=== PATIENT | female | born 1955 | race Caucasian/White ===

== ENCOUNTER 2019-01-11 08:31 | Observation (INO) | payer BC, OTHER ==
[2019-01-07 13:00] VITALS: BMI 28.5
--- NOTE | 2019-01-09 11:50 | PREOPHP ---
DATE OF ADMISSION: 01/11/2019 The patient to have surgery with Dr. Marielle Wilkinson 01/11/2019. REASON FOR CONSULTATION: Consultation requested by Dr. Marielle Wilkinson for medical evaluation and sebastian arabelae of a 63-year-old woman about to undergo surgery. Thank you, Dr. Wilkinson, for allowing us to participate in the care of this patient. HISTORY OF PRESENT ILLNESS: Yola Pack a 63-year-old woman, issues with her right hip is currently b eing admitted for correction of the above. In terms of her prior medical and surgical history patient has not had any medical hospitalizations, save for severe depression and one hospitalization for pne umonia several years back. Other than that, she has been relatively healthy from a medical standpoin t. From a surgical standpoint she has had 2 C-sections, had right and left hip surgery x2, one being open and the other one arthroscopic, had arthroscopic surgery on her right and left shoulder. Right x2, left x1 and one open one on her left shoulder. She has also had a total abdominal hysterectomy, had arthroscopic surgery done on her left knee. Other than that, however, she has been relatively h ealthy. She has not broken any bones. MEDICATIONS: She is currently taking the following medications: 1. Xanax 1 mg b.i.d. 2. Valium 5 mg 2 per day. 3. Cogentin 2 mg t.i.d. 4. Navane 5 mg daily. 5. Vitamins and minerals. 6. Also taking Metformin 850 mg b.i.d. SOCIAL HISTORY: The patient is , has 2 daughters and 2 grandchildren, 1 daughter has had [address] cancer, is a survivor. She does not smoke or drink alcohol, does drink coffee, is employed and ricks s usually no difficulty sleeping at night. FAMILY HISTORY: Father in late 90s of old age, mother in her 80s possibly also of old age and o ther issues associated with it including cancer, four brothers in good health. There is a family his tory of cancer. She knows of no diabetes, heart, hypertension, or stroke in the family. REVIEW OF SYSTEMS: HEENT: Unremarkable. CARDIORESPIRATORY: Denies any chest pain or shortness of breath. GASTROINTESTINAL: No melena or hematemesis. Does have signs and symptoms of irritable bowel syndrom e. GENITOURINARY: No urgency or frequency. GYNECOLOGIC: Post hysterectomy. MUSCULOSKELETAL: Positive for right hip pain. NEUROPSYCHIATRIC: Positive for depression. GENERAL HEALTH: As above. PHYSICAL EXAMINATION: VITAL SIGNS: The patient's blood pressure was 110/80. Respirations were 18, temperature 98.5, pulse was 69, height was 5 feet 1 inch, weight was 151 pounds. GENERAL: The patient was noted to be a well-developed, well-nourished female, alert and cooperative, in no apparent acute distress. Oriented to time, place, and person. HEAD, EARS, EYES, NOSE AND THROAT: Head was atraumatic. Eyes: Pupils were equal, reactive to light and accommodation. Fundi were benign. Tympanic membranes were unremarkable. Nose was negative. M outh was unremarkable. Fair oral hygiene was present. NECK: Supple without any rigidity. Trachea was midline. Thyroid was within normal limits. Neck ve ins were flat. Carotid pulses were equal. No bruits were heard. BACK: Unremarkable. CHEST: Symmetrical. BREASTS AND AXILLARY: Did not reveal any obvious masses. LUNGS: Clear to percussion and auscultation. HEART: PMI was 5th intercostal space at the midclavicular line. A regular sinus rhythm was noted. No significant murmurs, rubs, or gallops being elicited. ABDOMEN: Soft, good bowel sounds were noted. No significant organomegaly, masses, tenderness. Scar from prior surgery was noted. GENITALIA AND PELVIRECTAL: Up to date per PCP. EXTREMITIES: Did not reveal any clubbing, edema or cyanosis. Peripheral pulses were physiologic. S cars from prior surgeries were noted. Skin was moist and warm without any eruptions. No gross lymph adenopathy was noted. NEUROLOGIC: Grossly intact. IMPRESSION: 1. Torn tendon muscle right hip with secondary right hip pain. 2. Prediabetes type 2. 3. Chronic pain syndrome. 4. Depression. 5. Stable health. DISCUSSION: Review of laboratory and other data revealed the following: The patient's chemistry castillo el including electrolytes, glucose, BUN, creatinine, calcium, uric acid, proteins, liver function melvina ts, magnesium, serum iron, hemoglobin A1c, CBC, UA, PT and PTT were all normal. Her hemoglobin A1c w as 5.8, which is in the prediabetes range and depicts excellent control of diabetes. The patient's E KG was borderline. A sinus bradycardia was noted and nonspecific ST-T wave changes being noted as we ll. No acute changes being noted, and chest x-ray did not reveal any acute infiltrates, nor were the re any acute cardiopulmonary changes being noted. DISCUSSION: Dr. Wilkinson, I see no contraindication in this patient undergoing current proposed surge ry under desired form of anesthesia. I feel she is a suitable candidate at this particular point in time. Should any medical problems arise during her stay at [facility], will be more than ricks ppy to follow her up at the appropriate times. Thank you again, Dr. Wilkinson, for allowing us to participate in the care of this patient. Dictated By: SHERLY LOONEY MD SS/NTS Conf#: [id number] DID#: [id number] CC: MARIELLE WILKINSON MD;*EndCC*
[~2019-01-11] VITALS: Ht 157.5 cm; Wt 68.0 kg
[2019-01-11] VITALS (27 sets, daily range): BP systolic 91–131; BP diastolic 53–79; PULSE 50–86; RESP 10–28; Ht 157.5 cm; Wt 68.0 kg
--- NOTE | 2019-01-11 05:27 | HPN ---
Date/Time of Note Date/Time of Note DATE: 01/11/19 TIME: 05:27 Interval H&P Admission Note Pt. seen H&P reviewed: No system changes MARIELLE FINK MD January 11, 2019 05:27
--- NOTE | 2019-01-11 05:29 | OPR ---
Date/Time of Note Date/Time of Note DATE: 01/11/19 TIME: 05:27 Operative Report Procedure Date: January 11, 2019 Preoperative Diagnosis Right hip chronic abductor tendon tear Postoperative Diagnosis 1. Right hip chronic gluteus medius tear 2. Right hip chronic trochanteric bursitis, severe Operation/Procedure Performed 1. Right open gluteus medius repair 2. Right open trochanteric bursectomy 3. Right hip injection of PRP solution Surgeon see signature line Sales Market Leader Denilson Raza PA-C Anesthesia Type: general Estimated Blood Loss: 50 - 100 ml's Transfusion none Specimen None Grafts/Implants See body of op note Complications none Pt Condition Post Procedure: stable Disposition: PACU Procedure Description REGISTERED NURSE SUPERVISOR SURGEON: Denilson Raza PA-C was asked to be present at my request as a result of the complexity associated with this procedure including positioning of the extremity, as well as exposure of the neurovascular structures and protection of those structures. In my opinion, the assistance offered by a ophthalmology surgical technician is insufficient and he should be compensated for his time. PROCEDURE IN DETAIL: Following the administration of general endotracheal anesthesia supplemented with a local anesthetic, the right forearm was then sterilely prepped and 60 cc of blood were aspirated from the forearm. The blood was then passed off to the patient intake representative from the company for preparation of the PRP solution. The patient was then placed in the left lateral decubitus position after carefully turning her. An axillary fold was placed. Sterile prep and drape was then undertaken. A lateral incision was then made over the trochanteric prominence of the right hip directly over the prior incision. The incision was carried through the subcutaneous tissues exposing the iliotibial band, which appeared to be chronically torn and retracted. The IT band was then i mobilized up to the area of the tensor femoris and up to the area proximally at the origin. A severe amount of bursal reactive tissue was then excised and a recurrent tear of the gluteus medius with a complete avulsion was noted. The prior sutures were noted to be in place but the tissue had torn through. A thorough bursectomy was completed with severe bursal reactive tissue being excised. Once the bursectomy was completed, the lateral aspect of the trochanter was then cleared of soft tissue and a bleeding bed was es tablished. Several urgent extensive posterior osteophytes were removed. The abductor mechanism was investigated. The gluteus minimus appeared to be well-healed with the prior repair. However, the medius was completely torn and retracted. The tissue was mobilized and a good amount of solid tissue was noted with a good tendinous edge. A decision was then made to perform a primary repair. At this point two 5.5 mm, double loaded titanium anchors were then impacted into the tuberosity. The sutures were then passed in a mattress fashion through the abductor musculature. This incorporated both the gluteus minimus and gluteus medius tendons. In addition, portion of the gluteus juan miguel was mobilized anteriorly in order to give it a good vascular bed. The previously prepared PRP solution was injected in the sub-gluteal region in the area of the repair. The abductor was then reapproximated solidly. The iliotibial band was also closed. This was done using the prior sutures from the suture anchors and tied in a [id number] fashion. The wound was thoroughly irrigated. The wound was then closed in layers and a Prenio for the final cover. This was watertight. Estimated blood loss was procedure was 50 cc. MARIELLE FINK MD January 11, 2019 05:29
[~2019-01-11 08:31] MED LIST: ALPR1TAB2 PO; ASEN5TAB7 SL; BENZ2AMP IM; DIAZ10TA4 PO; METF750T PO; THIO5CAP2 PO; TRAZ-111 PO
[2019-01-11] MEDS ORDERED: BENZ1TAB7 PO (09:29)
[2019-01-11] MEDS ORDERED: TRANEXAMIC ACID 1GM/100ML(PMX) 100 ML IVPB ONE (09:30)
[2019-01-11] MEDS ORDERED: DEXAMETHASONE 1 MG TAB PO ONE (09:30)
[2019-01-11] MEDS ORDERED: DIAZ10TA4 PO (09:30)
[2019-01-11] MEDS ORDERED: GABAPENTIN 300 MG CAP PO ONE (09:30)
[2019-01-11] MEDS ORDERED: CEFAZOLIN 2 GM/50 ML (PMX) 50 ML IVPB ONE (09:30)
[2019-01-11] MEDS ORDERED: THIO5CAP2 PO (09:31)
[2019-01-11] MEDS ORDERED: TRA100 PO (09:32)
[2019-01-11] MEDS ORDERED: CA CHLORIDE 10% 10 ML SYRINGE ONE (10:38)
[2019-01-11] MEDS ORDERED: THROMBIN 20,000 UNIT VIAL ONE (10:38)
--- NOTE | 2019-01-11 10:40 | PREAC ---
Date/Time of Note Date/Time of Note DATE: 01/11/19 TIME: 10:38 Anesthesia Eval and Record Evaluation Time Pre-Procedure Interview DATE: 01/11/19 TIME: 10:38 Age 63 Sex female NPO: 8 hrs Preoperative diagnosis right abductor tear Planned procedure right abductor repair, open trachanteric bursetomy, possible gluteus juan miguel transfer Past Medical History Past Medical History: Includes Endo: Diabetes (prediabetes) Psych: Depression, Anxiety Surgery & Anesthesia Issues No known issue Meds Anticoagulation: No Beta Ty within 24 hr: No Reason Beta Ty not given: Pt. not on B-Ty Reported Medications Trazodone Hcl* (Trazodone Hcl*) 100 Mg Tablet, 100-200 MG PO QHS, #30 TAB 01/11/19 Thiothixene* (Thiothixene*) 5 Mg Capsule, 5 MG PO QPM, CAP PT BROUGHT HER OWN 01/11/19 Diazepam* (Diazepam*) 10 Mg Tablet, 10 MG PO QAM, TAB 01/11/19 Benztropine Mesylate* (Benztropine Mesylate*) 1 Mg Tablet, 1 MG PO TID, TAB 01/11/19 Asenapine (Saphris) 5 Mg Tab.subl, 7.5 MG SL QHS 01/07/19 Alprazolam* (Xanax*) 1 Mg Tab, 1 MG PO BID PRN for ANXIETY, TAB 01/07/19 Metformin* (Glucophage* XR) 750 Mg Tab.sr.24h, 750 MG PO BID, #30 TAB 01/07/19 Discontinued Reported Medications Trazodone Hcl* (Trazodone Hcl*) 50 Mg Tablet, 50 MG PO TID, #90 TAB 01/07/19 Benztropine Mesylate* (Benztropine Mesylate*) 2 Mg/2 Ml Ampul, 1 MG IM HS, AMP 01/07/19 Thiothixene* (Navane*) 5 Mg Cap, 5 MG PO DAILY, CAP 01/07/19 Diazepam* (Diazepam*) 10 Mg Tablet, 20 MG PO, TAB 01/07/19 Current Medications Sodium Chloride/ Tranexamic Acid INTRA-OP ONCE IRR ; Start 01/11/19 at 11:00; Stop 01/11/19 at 11:01 Bupivacaine HCl/ Morphine Sulfate/ Epinephrine/ Ketorolac Tromethamine/ Sodium Chloride/ Vancomycin HCl/ Clonidine INTRA-OP IRR ; Start 01/11/19 at 11:00; Stop 01/11/19 at 13:00 Meds reviewed: Yes Allergies Coded Allergies: No Known Allergy (Unverified , 01/11/19) Allergies Reviewed: Yes Labs/Studies Labs Reviewed: Reviewed by anesthesiologist test: N/A Studies: ECG, CXR Pre-procedure Exam Last vitals Vital Signs Date Temp Pulse Resp B/P (MAP) Pulse Ox O2 O2 Flow FiO2 Time Delivery Rate 01/11/19 98.3 86 16 126/79 97 Room Air 09:41 (95) Airway: Adequate mouth opening, Adequate thyromental dist Mallampati: Mallampati II Teeth: Normal Lung: Normal Heart: Normal ASA Physical Status ASA physical status: 2 Emergency: None Planned Anesthetic General/MAC: ETT Planned Pain Management Parenteral pain med Pre-operative Attestations Prior to commencing anesthesia and surgery, the patient was re-evaluated, there was verification of: *The patient's identity *The results of appropriate recent lab work and preoperative vital signs *The above evaluation not changing prior to induction *Anesthetic plan, risk benefits, alternative and complications discussed with patient/family; questions answered; patient/family understands, accepts and wishes to proceed. SHON HARDING MD January 11, 2019 10:40
[2019-01-11] MEDS ORDERED: PROPOFOL 20 ML ONE (10:55)
[2019-01-11] MEDS ORDERED: MIDAZOLAM 1 MG/ML 2 ML INJ ONE (10:55)
[2019-01-11] MEDS ORDERED: LIDOCAINE 2% (SDV) 5 ML INJ ONE (10:55)
[2019-01-11] MEDS ORDERED: SUCCINYLCHOLINE CHLORIDE 100 MG/5 ML SYG IV ONE (10:55)
[2019-01-11] MEDS ORDERED: ROCURONIUM 50 MG INJ ONE (10:55)
[2019-01-11] MEDS ORDERED: PROCHLORPERAZINE 10 MG INJ IV PRN (11:00)
[2019-01-11] MEDS ORDERED: ONDANSETRON 4 MG INJ IV PRN ×2 (11:00→12:00)
[2019-01-11] MEDS ORDERED: BUPIVACAINE 0.5% (SDV) 30 ML, morphine SULFATE (PF) 8 MG, EPINEPHrine 0.3 MG, KETOROLAC... IRR SCH ×7 (11:00)
[2019-01-11] MEDS ORDERED: FENTAnyl 50 MCG/ML VIAL IV PRN (11:00)
[2019-01-11] MEDS ORDERED: DIPHENHYDRAMINE 50 MG INJ IV PRN ×2 (11:00→12:00)
[2019-01-11] MEDS ORDERED: HYDROmorphONE 1 MG/5 ML IV SYRINGE IV PRN ×2 (11:00)
[2019-01-11] MEDS ORDERED: MEPERIDINE 25 MG INJ IV PRN (11:00)
[2019-01-11] MEDS ORDERED: SOD CHLORIDE 0.9% 100 ML, TRANEXAMIC ACID 3,000 MG IRR ONE ×2 (11:00)
[2019-01-11] MEDS ORDERED: SEVOFLURANE 15 MIN ONE (11:00)
[2019-01-11] MEDS ORDERED: TRANEXAMIC ACID 1GM/100ML(PMX) 100 ML ONE (11:03)
[2019-01-11] MEDS ORDERED: FENTAnyl 50 MCG/ML VIAL ONE (11:18)
[2019-01-11] MEDS ORDERED: ONDANSETRON 4 MG INJ ONE (11:18)
[2019-01-11] MEDS ORDERED: FAMOTIDINE 20 MG INJ ONE (11:18)
[2019-01-11] MEDS ORDERED: DEXAMETHASONE 4 MG/ML 5 ML INJ ONE (11:18)
[2019-01-11] MEDS ORDERED: CEFAZOLIN 1 GM INJ ONE (11:21)
[2019-01-11] MEDS ORDERED: POLYMYXIN/BACITRACIN 1L IRRIG IRR ONE (11:41)
[2019-01-11] MEDS: LACTATED RINGER'S 1,000 ML IV SCH ×4 (11:58→21:40)
[2019-01-11] MEDS ORDERED: ZOLPIDEM 5 MG TAB PO PRN (12:00)
[2019-01-11] MEDS ORDERED: HYDROmorphONE 1 MG/ML SYG IV PRN (12:00)
[2019-01-11] MEDS ORDERED: ALPRAZOLAM 1 MG TAB PO PRN (12:00)
[2019-01-11] MEDS ORDERED: MAGNESIUM HYDROXIDE 30ML CUP PO PRN (12:00)
[2019-01-11] MEDS ORDERED: oxyCODONE 5 MG TAB PO PRN ×2 (12:00)
[2019-01-11] MEDS ORDERED: NACL 0.9% 3 ML SYG IV SCH (12:00)
--- NOTE | 2019-01-11 12:03 | PDOCDIS ---
Discharge Instructions DIAGNOSIS Discharge Diagnosis Hip abductor tear CONDITION [id number] Patient Condition: [id number] Good HOME CARE INSTRUCTIONS: Yyole2Un Diet Instructions: [id number] Regular ACTIVITY: [id number] Activity Restrictions: [id number] Slowly Increase Activity Keep Limb Elevated [id number] Bathing Restrictions: [id number] Shower FOLLOW UP/APPOINTMENTS Follow-up Plan 2 weeks in the office SCHOOL/WORK RELEASE May return to School/Work with: With Restrictions School/Work Release Comment: Foot flat weightbearing with no twisting for 4 weeks MARIELLE FINK MD January 11, 2019 12:03
[2019-01-11] MEDS ORDERED: NEOSTIGMINE 3 MG/3 ML SYRINGE ONE ×2 (12:06→12:07)
[2019-01-11] MEDS ORDERED: GLYCOPYRROLATE 0.4 MG INJ ONE ×2 (12:06→12:07)
[2019-01-11] MEDS ORDERED: CEFAZOLIN 1 GM/50 ML (PMX) 50 ML IVPB ONE (12:24)
[2019-01-11] MEDS: CEFAZOLIN 1 GM/50 ML (PMX) 50 ML IVPB SCH ×2 (12:32→20:57)
[2019-01-11] MEDS: DEXAMETHASONE 2 MG TAB PO SCH ×3 (12:33→23:28)
[2019-01-11] MEDS: HYDROmorphONE 1 MG/5 ML IV SYRINGE IV PRN ×2 (12:36→13:04)
--- NOTE | 2019-01-11 12:36 | PAC ---
Date/Time of Note Date/Time of Note DATE: 01/11/19 TIME: 12:35 Post-Anesthesia Notes Post-Anesthesia Note Last documented vital signs Vital Signs Date Temp Pulse Resp B/P (MAP) Pulse Ox O2 O2 Flow FiO2 Time Delivery Rate 01/11/19 97.8 11:40 01/11/19 86 16 126/79 97 Room Air 09:41 (95) Activity: WNL Respiratory function: WNL Cardiovascular function: WNL Mental status: Baseline Pain reasonably controlled: Yes Hydration appropriate: Yes Nausea/Vomiting absent: Yes Comments BP: 112/72 HR: 78 RR: 15 T: 98.3 SaO2: 99% SHON HARDING MD January 11, 2019 12:36
[2019-01-11] MEDS: ACETAMINOPHEN 1000MG/100ML IV 100 ML IVPB SCH ×2 (12:46→20:42)
[2019-01-11] MEDS: BENZTROPINE 1 MG TAB PO SCH ×3 (13:00→20:42)
[2019-01-11] MEDS ORDERED: [UNRECOGNIZED DRUG - OTHER] XX SCH (14:30)
[2019-01-11] MEDS ORDERED: [UNRECOGNIZED DRUG - OTHER] XX SCH (14:30)
--- NOTE | 2019-01-11 18:06 | CONS ---
Assessment/Plan Assessment/Plan Problems: (1) Tear of right gluteus medius tendon Status: Chronic Comment: Status post surgical repair and doing well without evidence of surgical complications. Continue with routine care and medications. (2) Chronic pain syndrome Status: Chronic Comment: Noted. Consultation Date/Type/Reason Admit Date/Time January 11, 2019 at 08:31 Initial Consult Date January 11, 2019 Type of Consult Internal medicine Reason for Consultation Postop assistance Requesting Provider: MARIELLE FINK MD Date/Time of Note DATE: 01/11/19 TIME: 18:04 24 HR Interval Summary Free Text/Dictation Pleasant woman postop who is somewhat narcotize Constitutional: no complaints Detailed Summary Respiratory: no complaints Cardiovascular: no complaints Gastrointestinal: no complaints Genitourinary: no complaints Exam/Review of Systems Exam Vitals Vital Signs Date Temp Pulse Resp B/P (MAP) Pulse Ox O2 O2 Flow FiO2 Time Delivery Rate 01/11/19 98.2 52 18 102/61 100 14:23 (75) 01/11/19 Nasal 2.0 13:45 Cannula Constitutional: alert, oriented Neck: supple, non-tender Respiratory: clear to auscultation, normal air movement Cardiovascular: regular rate and rhythm, nl pulses Results Results 24hrs Laboratory Tests Test 01/11/19 10:52 Bedside Glucose 99 Medications Medication Current Medications Hydromorphone HCl (Dilaudid) 0.2 mg PACU PRN IV MILD PAIN 1-3; Start 01/11/19 at 11:00; Stop 01/11/19 at 18:00 Hydromorphone HCl (Dilaudid) 0.4 mg PACU PRN IV MOD PAIN 4-6 Last administered on 01/11/19at 13:04; Admin Dose 0.4 MG; Start 01/11/19 at 11:00; Stop 01/11/19 at 18:00 Hydromorphone HCl (Dilaudid) 0.6 mg PACU PRN IV SEVERE PAIN 7-10 Last administered on 01/11/19at 12:31; Admin Dose 0.6 MG; Start 01/11/19 at 11:00; Stop 01/11/19 at 18:00 Fentanyl (Sublimaze) 25 mcg PACU ORDER PRN IV MILD PAIN 1-3; Start 01/11/19 at 11:00; Stop 01/11/19 at 18:00 Ondansetron HCl (Zofran Inj) 4 mg PACU ORDER PRN IV NAUSEA/VOMITING Last admin istered on 01/11/19at 12:32; Admin Dose 4 MG; Start 01/11/19 at 11:00; Stop 01/11/19 at 18:00 Prochlorperazine (Compazine Inj) 5 mg PACU ORDER PRN IV NAUSEA/VOMITING; Start 01/11/19 at 11:00; Stop 01/11/19 at 18:00 Meperidine HCl (Demerol) 25 mg PACU ORDER PRN IV .RIGORS; Start 01/11/19 at 11:00; Stop 01/11/19 at 18:00 Diphenhydramine HCl (Benadryl) 25 mg PACU ORDER PRN IV .PRURITUS; Start 01/11/19 at 11:00; Stop 01/11/19 at 18:00 Alprazolam (Xanax) 1 mg BID PRN PO ANXIETY; Start 01/11/19 at 12:00 Benztropine Mesylate (Cogentin) 1 mg TID PO Last administered on 01/11/19at 15:46; Admin Dose 1 MG; Start 01/11/19 at 13:00 Diazepam (Valium) 10 mg QAM PO ; Start 01/12/19 at 09:00 Trazodone HCl (Desyrel) 100 mg QHS PO ; Start 01/11/19 at 21:00 Miscellaneous Information 7.5 mg QHS SL ; Start 01/11/19 at 21:00; Status UNV Metformin HCl (Glucophage Xr) 750 mg BID PO ; Start 01/11/19 at 21:00 Lactated Ringer's 1,000 ml @ 100 mls/hr Q10H IV Last administered on 01/11/19at 14:54; Admin Dose 100 MLS/HR; Start 01/11/19 at 11:58 Cefazolin Sodium 50 ml @ 100 mls/hr Q8H IVPB Last administered on 01/11/19at 12:32; Admin Dose 100 MLS/HR; Start 01/11/19 at 12:00; Stop 01/12/19 at 04:29 Senna/Docusate Sodium (Senokot-S) 1 tab BID PO ; Start 01/11/19 at 21:00 Simethicone (Mylicon) 80 mg TID PRN PO .GAS; Start 01/11/19 at 12:00 Magnesium Hydroxide (Milk Of Mag) 30 ml BID PRN PO .CONSTIPATION; Start 12/29 12/17 at 12:00 Magnesium Hydroxide (Milk Of Mag) 30 ml HS PO ; Start 01/13/19 at 21:00 Dexamethasone (Decadron) 2 mg Q6 PO Last administered on 01/11/19at 12:33; Admin Dose 2 MG; Start 01/11/19 at 12:00; Stop 01/12/19 at 06:01 Gabapentin (Neurontin) 300 mg HS PO ; Start 01/11/19 at 21:00 Acetaminophen 100 ml @ 400 mls/hr Q8H IVPB Last administered on 01/11/19at 12:46; Admin Dose 400 MLS/HR; Start 01/11/19 at 12:00; Stop 01/12/19 at 04:14 Oxycodone HCl (Roxicodone) 15 mg Q4H PRN PO .PAIN; Start 01/11/19 at 12:00 Oxycodone HCl (Roxicodone) 10 mg Q4H PRN PO .PAIN; Start 01/11/19 at 12:00 Oxycodone HCl (Roxicodone) 5 mg Q4H PRN PO .PAIN; Start 01/11/19 at 12:00 Hydromorphone HCl (Dilaudid) 1 mg Q4H PRN IV .BREAKTHROUGH PAIN; Start 01/11/19 at 12:00 Ondansetron HCl (Zofran Inj) 4 mg Q6H PRN IV NAUSEA/VOMITING; Start 01/11/19 at 12:00 Diphenhydramine HCl (Benadryl) 25 mg Q6H PRN IV .PRURITUS; Start 01/11/19 at 12:00 Zolpidem Tartrate (Ambien) 10 mg HS PRN PO .INSOMNIA; Start 01/11/19 at 12:00 IV Flush (NS 3 ml) 3 ml per protocol IV ; Start 01/11/19 at 12:00 Aspirin (Ecotrin) 325 mg DAILY PO ; Start 01/12/19 at 09:00 Miscellaneous Information (*Order Clarification Bulletin) SAPHRIS IS NON FORMULARY...PLEASE CONSIDER AN OR... Q8H XX ; Start 01/11/19 at 14:30 Patient Own Medication 1 ea QPM PO ; Start 01/11/19 at 21:00 KRIS GANDHI MD January 11, 2019 18:06
[2019-01-11] MEDS ORDERED: ALPRAZOLAM 0.5 MG TAB PO PRN (18:30)
[2019-01-11] MEDS: metFORMIN (XR) 500 MG TAB PO SCH (18:35)
[2019-01-11] MEDS: oxyCODONE 5 MG TAB PO PRN (19:08)
[2019-01-11] MEDS: SENNA/DOCUSATE NA (8.6MG/50MG) TAB PO SCH (20:42)
[2019-01-11] MEDS ORDERED: THIOTHIXENE 5 MG CAP PO SCH ×2 (21:00)
[2019-01-11] MEDS ORDERED: ASENAPINE SL SCH (21:00)
[2019-01-11] MEDS ORDERED: traZODone 100 MG TAB PO SCH (21:00)
[2019-01-11] MEDS ORDERED: metFORMIN (XR) 500 MG TAB PO SCH (21:00)
[2019-01-11] MEDS ORDERED: GABAPENTIN 300 MG CAP PO SCH (21:00)
[2019-01-11] MEDS ORDERED: [UNRECOGNIZED DRUG - OTHER] PO SCH (21:00)
[2019-01-12 00:02] VITALS: BP 90/53; PULSE 55; RESP 18
[2019-01-12] MEDS: CEFAZOLIN 1 GM/50 ML (PMX) 50 ML IVPB SCH (03:40)
[2019-01-12 04:17] VITALS: BP 101/64; PULSE 64; RESP 18
[2019-01-12] MEDS: DEXAMETHASONE 2 MG TAB PO SCH (05:03)
[2019-01-12] MEDS: ACETAMINOPHEN 1000MG/100ML IV 100 ML IVPB SCH (05:03)
--- NOTE | 2019-01-12 05:44 | PN ---
Date/Time of Note Date/Time of Note DATE: 01/12/19 TIME: 05:44 Subjective Awake and alert with no complaints Objective Vitals Vital Signs Date Temp Pulse Resp B/P (MAP) Pulse Ox O2 O2 Flow FiO2 Time Delivery Rate 01/12/19 97.5 64 18 101/64 100 04:17 (76) 01/11/19 Nasal 2.0 18:45 Cannula Intake and Output 01/11/19 01/11/19 01/12/19 1515:00 23:00 07:00 IntakeIntake Total 1350 ml 1250 ml OutputOutput Total 20 ml BalanceBalance 1330 ml 1250 ml Wound is clean and dry. Neurologically intact. No signs of DVT. Medications Medications Current Medications Alprazolam (Xanax) 1 mg BID PRN PO ANXIETY; Start 01/11/19 at 12:00 Benztropine Mesylate (Cogentin) 1 mg TID PO Last administered on 01/11/19at 20:42; Admin Dose 1 MG; Start 01/11/19 at 13:00 Diazepam (Valium) 10 mg QAM PO ; Start 01/12/19 at 09:00 Trazodone HCl (Desyrel) 100 mg QHS PO Last administered on 01/11/19at 20:42; Admin Dose 100 MG; Start 01/11/19 at 21:00 Patient Own Medication 7.5 ea QHS SL Last administered on 01/11/19at 20:42; Admin Dose 7.5 EA; Start 01/11/19 at 21:00 Lactated Ringer's 1,000 ml @ 100 mls/hr Q10H IV Last administered on 01/11/19at 19:08; Admin Dose 100 MLS/HR; Start 01/11/19 at 11:58 Senna/Docusate Sodium (Senokot-S) 1 tab BID PO Last administered on 01/11/19 20:42; Admin Dose 1 TAB; Start 01/11/19 at 21:00 Simethicone (Mylicon) 80 mg TID PRN PO .GAS; Start 01/11/19 at 12:00 Magnesium Hydroxide (Milk Of Mag) 30 ml BID PRN PO .CONSTIPATION; Start 01/11/19 at 12:00 Magnesium Hydroxide (Milk Of Mag) 30 ml HS PO ; Start 01/13/19 at 21:00 Dexamethasone (Decadron) 2 mg Q6 PO Last administered on 01/12/19at 05:03; Admin Dose 2 MG; Start 01/11/19 at 12:00; Stop 01/12/19 at 06:01 Gabapentin (Neurontin) 300 mg HS PO Last administered on 01/11/19at 20:42; Admin Dose 300 MG; Start 01/11/19 at 21:00 Oxycodone HCl (Roxicodone) 15 mg Q4H PRN PO .PAIN; Start 01/11/19 at 12:00 Oxycodone HCl (Roxicodone) 10 mg Q4H PRN PO .PAIN; Start 01/11/19 at 12:00 Oxycodone HCl (Roxicodone) 5 mg Q4H PRN PO .PAIN Last administered on 01/11/19at 19:08; Admin Dose 5 MG; Start 01/11/19 at 12:00 Hydromorphone HCl (Dilaudid) 1 mg Q4H PRN IV .BREAKTHROUGH PAIN; Start 01/11/19 at 12:00 Ondansetron HCl (Zofran Inj) 4 mg Q6H PRN IV NAUSEA/VOMITING; Start 01/11/19 at 12:00 Diphenhydramine HCl (Benadryl) 25 mg Q6H PRN IV .PRURITUS; Start 01/11/19 at 12:00 Zolpidem Tartrate (Ambien) 10 mg HS PRN PO .INSOMNIA; Start 01/11/19 at 12:00 IV Flush (NS 3 ml) 3 ml per protocol IV ; Start 01/11/19 at 12:00 Aspirin (Ecotrin) 325 mg DAILY PO ; Start 01/12/19 at 09:00 Patient Own Medication 1 ea QPM PO Last administered on 01/11/19at 20:43; Admin Dose 1 EA; Start 01/11/19 at 21:00 Alprazolam (Xanax) 0.5 mg Q8H PRN PO ANXIETY Last administered on 01/11/19at 21:24; Admin Dose 0.5 MG; Start 01/11/19 at 18:30 Metformin HCl (Glucophage Xr) 750 mg WITH BREAKFAST DINNE PO ; Start 01/11/19 at 18:35 VTE Prophylaxis Risk score (from Nsg)>0 risk: 5 SCD applied (from Nsg): Yes Lines/Catheters IV Catheter Type: Saline Lock Yanes in Place: No Assessment/Plan Assessment/Plan Assessment: Status post abductor repair Plan: Begin PT this morning discharge after MARIELLE FINK MD January 12, 2019 05:44
--- NOTE | 2019-01-12 05:45 | DS ---
Date/Time of Note Date/Time of Note DATE: 01/12/19 TIME: 05:45 Discharge Summary Admission/Discharge Info Admit Date/Time January 11, 2019 at 08:31 Discharge Date/Time 01/12/2019 Discharge Diagnosis Hip abductor tear Patient Condition: Good Hospital Course Admitted, underwent uncomplicated procedure. Postop day 1 afebrile wound clean and dry neurologically intact stable for discharge after PT Home Meds Reported Medications Trazodone Hcl* (Trazodone Hcl*) 100 Mg Tablet, 100-200 MG PO QHS, #30 TAB 01/11/19 Thiothixene* (Thiothixene*) 5 Mg Capsule, 5 MG PO QPM, CAP PT BROUGHT HER OWN 01/11/19 Diazepam* (Diazepam*) 10 Mg Tablet, 10 MG PO QAM, TAB 01/11/19 Benztropine Mesylate* (Benztropine Mesylate*) 1 Mg Tablet, 1 MG PO TID, TAB 01/11/19 Asenapine (Saphris) 5 Mg Tab.subl, 7.5 MG SL QHS 01/07/19 Alprazolam* (Xanax*) 1 Mg Tab, 1 MG PO BID PRN for ANXIETY, TAB 01/07/19 Metformin* (Glucophage* XR) 750 Mg Tab.sr.24h, 750 MG PO BID, #30 TAB 01/07/19 Discontinued Reported Medications Trazodone Hcl* (Trazodone Hcl*) 50 Mg Tablet, 50 MG PO TID, #90 TAB 01/07/19 Benztropine Mesylate* (Benztropine Mesylate*) 2 Mg/2 Ml Ampul, 1 MG IM HS, AMP 01/07/19 Thiothixene* (Navane*) 5 Mg Cap, 5 MG PO DAILY, CAP 01/07/19 Diazepam* (Diazepam*) 10 Mg Tablet, 20 MG PO, TAB 01/07/19 Follow-up Plan 2 weeks in the office Primary Care Provider Not On Staff Doctor Pending Labs Laboratory Tests Test 01/11/19 10:52 Bedside Glucose 99 mg/dL (70-220) MARIELLE FINK MD January 12, 2019 05:45
[2019-01-12] MEDS: oxyCODONE 5 MG TAB PO PRN ×2 (05:46→11:12)
--- NOTE | 2019-01-12 07:20 | CONS ---
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 Physical therapy will work with her and if she can be functional at home she will be discharged home today otherwise through tomorrow (2) Chronic pain syndrome Status: Chronic Comment: Noted. Consultation Date/Type/Reason Admit Date/Time January 11, 2019 at 08:31 Initial Consult Date January 11, 2019 Type of Consult Internal medicine Reason for Consultation Postop follow-up after repair of gluteus medius tendons, bursectomy etc. Requesting Provider: MARIELLE FINK MD Date/Time of Note DATE: 01/12/19 TIME: :19 24 HR Interval Summary Free Text/Dictation Patient reports she is having a decent amount of pain. However she reports she is going to be working physical therapy possibility of discharge today Constitutional: no complaints Detailed Summary Respiratory: no complaints Cardiovascular: no complaints Gastrointestinal: no complaints Exam/Review of Systems Exam Vitals Vital Signs Date Temp Pulse Resp B/P (MAP) Pulse Ox O2 O2 Flow FiO2 Time Delivery Rate 01/12/19 97.5 64 18 101/64 100 04:17 (76) 01/11/19 Nasal 2.0 18:45 Cannula Intake and Output 01/11/19 01/11/19 01/12/19 1515:00 23:00 07:00 IntakeIntake Total 1350 ml 1250 ml 950 ml OutputOutput Total 20 ml BalanceBalance 1330 ml 1250 ml 950 ml Constitutional: alert, oriented Respiratory: clear to auscultation, normal air movement Cardiovascular: regular rate and rhythm, nl pulses Results Results 24hrs Laboratory Tests Test 01/11/19 10:52 Bedside Glucose 99 Medications Medication Current Medications Alprazolam (Xanax) 1 mg BID PRN PO ANXIETY; Start 01/11/19 at 12:00 Benztropine Mesylate (Cogentin) 1 mg TID PO Last administered on 01/11/19at 20:42; Admin Dose 1 MG; Start 01/11/19 at 13:00 Diazepam (Valium) 10 mg QAM PO ; Start 01/12/19 at 09:00 Trazodone HCl (Desyrel) 100 mg QHS PO Last administered on 01/11/19at 20:42; Admin Dose 100 MG; Start 01/11/19 at 21:00 Patient Own Medication 7.5 ea QHS SL Last administered on 01/11/19at 20:42; Admin Dose 7.5 EA; Start 01/11/19 at 21:00 Lactated Ringer's 1,000 ml @ 100 mls/hr Q10H IV Last administered on 01/11/19 19:08; Admin Dose 100 MLS/HR; Start 01/11/19 at 11:58 Senna/Docusate Sodium (Senokot-S) 1 tab BID PO Last administered on 01/11/19at 20:42; Admin Dose 1 TAB; Start 01/11/19 at 21:00 Simethicone (Mylicon) 80 mg TID PRN PO .GAS; Start 01/11/19 at 12:00 Magnesium Hydroxide (Milk Of Mag) 30 ml BID PRN PO .CONSTIPATION; Start 01/11/19 at 12:00 Magnesium Hydroxide (Milk Of Mag) 30 ml HS PO ; Start 01/13/19 at 21:00 Gabapentin (Neurontin) 300 mg HS PO Last administered on 01/11/19at 20:42; Admin Dose 300 MG; Start 01/11/19 at 21:00 Oxycodone HCl (Roxicodone) 15 mg Q4H PRN PO .PAIN; Start 01/11/19 at 12:00 Oxycodone HCl (Roxicodone) 10 mg Q4H PRN PO .PAIN; Start 01/11/19 at 12:00 Oxycodone HCl (Roxicodone) 5 mg Q4H PRN PO .PAIN Last administered on 01/12/19at 05:46; Admin Dose 5 MG; Start 01/11/19 at 12:00 Hydromorphone HCl (Dilaudid) 1 mg Q4H PRN IV .BREAKTHROUGH PAIN; Start 01/11/19 at 12:00 Ondansetron HCl (Zofran Inj) 4 mg Q6H PRN IV NAUSEA/VOMITING; Start 01/11/19 at 12:00 Diphenhydramine HCl (Benadryl) 25 mg Q6H PRN IV .PRURITUS; Start 01/11/19 at 12 :00 Zolpidem Tartrate (Ambien) 10 mg HS PRN PO .INSOMNIA; Start 01/11/19 at 12:00 IV Flush (NS 3 ml) 3 ml per protocol IV ; Start 01/11/19 at 12:00 Aspirin (Ecotrin) 325 mg DAILY PO ; Start 01/12/19 at 09:00 Patient Own Medication 1 ea QPM PO Last administered on 01/11/19at 20:43; Admin Dose 1 EA; Start 01/11/19 at 21:00 Alprazolam (Xanax) 0.5 mg Q8H PRN PO ANXIETY Last administered on 01/11/19at 21:24; Admin Dose 0.5 MG; Start 01/11/19 at 18:30 Metformin HCl (Glucophage Xr) 750 mg WITH BREAKFAST DINNE PO ; Start 01/11/19 at 18:35 KRIS GANDHI MD January 12, 2019 07:20
[2019-01-12 08:30] VITALS: BP 101/58; PULSE 62; RESP 18
[2019-01-12] MEDS: BENZTROPINE 1 MG TAB PO SCH ×2 (08:40→14:10)
[2019-01-12] MEDS: SENNA/DOCUSATE NA (8.6MG/50MG) TAB PO SCH (08:40)
[2019-01-12] MEDS: LACTATED RINGER'S 1,000 ML IV SCH (08:41)
[2019-01-12] MEDS ORDERED: ASPIRIN (EC) 325 MG TAB PO SCH (09:00)
[2019-01-12] MEDS ORDERED: DIAZEPAM 5 MG TAB PO SCH (09:00)
[2019-01-12] MEDS: metFORMIN (XR) 500 MG TAB PO SCH (09:06)
[2019-01-13] MEDS ORDERED: MAGNESIUM HYDROXIDE 30ML CUP PO SCH (21:00)
== END 2019-01-12 14:50 | disposition home or self-care (01) ==
LOC: REC 08:31 → INTOOBSV 08:31 → MS1 13:22
PROVIDERS: ADMIT Orthopaedic Surgery; ATTEND Orthopaedic Surgery
DX: S76.311A Strain of muscle, fascia and tendon of the posterior muscle group at thigh level, right thigh, initial encounter (principal); M70.61 Trochanteric bursitis, right hip; R73.03 Prediabetes; F32.9 Major depressive disorder, single episode, unspecified; X58.XXXA Exposure to other specified factors, initial encounter
CPT/HCPCS: 27062; 27299; 72170; 82962; 86999; 97116; 97161; 99217; J0131; J0171; J0690; J0735; J1100; J1170; J1885; J2250; J2274; J2405; J2710; J3010; J3370; J7120; G0378